=== PATIENT | female | born 1965 | race Caucasian/White ===

== ENCOUNTER 2019-12-15 22:14 | Emergency (ER) | payer SELFPAY ==
[~2019-12-15] VITALS: Ht 157.5 cm; Wt 63.6 kg
[2019-12-16 00:10] VITALS: BP 133/73
[2019-12-16] MEDS ORDERED: LIDOCAINE 1% 10 ML VIAL INJ ONE (00:45)
[2019-12-16] MEDS ORDERED: BACITRACIN 0.9 GM PACKET OINTMENT TP ONE (00:45)
[2019-12-16] MEDS ORDERED: PERTUSS(ACELL),DIPH,TET VAC/PF 0.5 ML VIAL IM ONE (00:45)
== END 2019-12-16 01:01 | disposition home or self-care (01) ==
LOC: EMS 22:14
DX: S61.411A Laceration without foreign body of right hand, initial encounter (principal); S51.811A Laceration without foreign body of right forearm, initial encounter; W54.0XXA Bitten by dog, initial encounter; Y93.89 Activity, other specified; Y92.89 Other specified places as the place of occurrence of the external cause; Y99.8 Other external cause status
CPT/HCPCS: 12002; 90471; 90715; 99283; J3490